=== PATIENT | female | born 1995 | race American Indian/Alaskan Native ===

== ENCOUNTER 2016-11-03 18:54 | Emergency (ER) | payer SELFPAY ==
[2016-11-03 20:04] LABS: Basophils % (Auto) 0.6 % (0.0-1.8); Eosinophils % (Auto) 5.3 % (0.0-4.3); Hematocrit 40.5 % (30.3-42.9); Hemoglobin 12.5 gm/dl (10.1-14.3); Mean Corpuscular HGB Conc 31 % (30-34); Mean Corpuscular Volume 72 fl (79-97); Platelet Count 334 K/mm3 (140-440); Red Blood Count 5.61 M/mm3 (3.65-5.03); Red Cell Distribution Width 14.1 % (13.2-15.2)
[2016-11-03 20:08] LABS: Mean Corpuscular Hemoglobin 22 pg (28-32)
[2016-11-03 20:21] LABS: Anion Gap 15 mmol/L; Blood Urea Nitrogen 9 mg/dL (7-17); Calcium 9.6 mg/dL (8.4-10.2); Carbon Dioxide 29 mmol/L (22-30); Chloride 103.6 mmol/L (98-107); Glucose 76 mg/dL (65-100); Potassium 3.9 mmol/L (3.6-5.0); Sodium 144 mmol/L (137-145)
[2016-11-03 20:38] LABS: Bacteria,Urine 1+ /HPF (Negative); Bilirubin,Urine NEG (Negative); Blood,Urine NEG (Negative); Ketones,Urine NEG (Negative); Leukocyte Esterase,Urine SM (Negative); Mucus,Urine 3+ /HPF; Nitrite,Urine NEG (Negative); Protein,Urine <15 mg/dL mg/dL (Negative)
--- NOTE | 2016-11-03 21:06 | Emergency Department Report ---
HPI - General Chief Complaint: Dyspnea/Respdistress Time Seen by Provider: 11/03/16 20:56 - HPI HPI: Chief complaint: I have chest pain. This is 21-year-old -[place] female who presents to the ED with right- sided chest pain that started yesterday. She stated her pain is 9 out of 10, sharp and radiates into her right upper back. And also complaining palpitation , and shortness of breath. She denies any fever or chills, sore throat or cough. Patient states that her LMP was August 03 and that she has been spotting ever since. She denies any alleviating factors. Strenuous activity however makes the pain worse. She does not smoke, ED Past Medical Hx - Past Medical History Previous Medical History?: No - Surgical History Past Surgical History?: No - Family History Family history: hypertension - Social History Smoking Status: Never Smoker Substance Use Type: None - Medications Home Medications: Home Medications Medication Instructions Recorded Confirmed Last Taken Type methOCARBAMOL [Robaxin TAB] 500 mg PO Q6H PRN #20 tablet 11/04/16 Unknown Rx ED Review of Systems ROS: Stated complaint: BODY PAIN Other details as noted in HPI Comment: All other systems reviewed and negative Respiratory: shortness of breath Cardiovascular: chest pain Physical Exam - Physical Exam Vital Signs: Vital Signs 11/03/16 11/03/16 19:28 20:57 Temperature 98.5 F Pulse Rate 59 L 57 L Respiratory 20 16 Rate Blood Pressure 112/74 Blood Pressure 111/66 [Left] O2 Sat by Pulse 100 99 Oximetry Physical Exam: Gen. alert and oriented 3 in no distress Head atraumatic normocephalic Eyes PERR LA EOMI Chest regular rate and rhythm normal S1-S2 lungs clear bilaterally Abdomen soft nondistended Back no point tenderness paravertebral tenderness Neuro no focal deficit. Psych normal mood. ED Course Vital Signs 11/03/16 11/03/16 19:28 20:57 Temperature 98.5 F Pulse Rate 59 L 57 L Respiratory 20 16 Rate Blood Pressure 112/74 Blood Pressure 111/66 [Left] O2 Sat by Pulse 100 99 Oximetry ED Medical Decision Making - Lab Data Result diagrams: 11/03/16 19:49 11/03/16 19:49 Critical care attestation.: If time is entered above; I have spent that time in minutes in the direct care of this critically ill patient, excluding procedure time. ED Disposition Clinical Impression: Atypical chest pain Disposition: DC-01 TO HOME OR SELFCARE Is pt being admited?: No Does the pt Need Aspirin: No Condition: Stable Instructions: Chest Pain (ED) Prescriptions: methOCARBAMOL [Robaxin TAB] 500 mg PO Q6H PRN #20 tablet PRN Reason: Pain
--- NOTE | 2016-11-03 21:28 | XRay Report ---
FINAL REPORT PROCEDURE: XR CHEST ROUTINE 2V TECHNIQUE: PA and lateral chest radiographs were obtained. CPT 50125 HISTORY: Shortness of breath COMPARISON: No prior studies are available for comparison. FINDINGS: Heart: Normal. Mediastinum/Vessels: Normal. Lungs/Pleural space: Normal. Bony thorax: No acute osseous abnormality. Other: IMPRESSION: Normal examination.
[2016-11-03 23:45] VITALS: BP 105/64
[2016-11-03] MEDS ORDERED: TORADOL IM ONE (23:45)
== END 2016-11-04 00:27 | disposition home or self-care (01) ==
LOC: ED 18:54
DX: R07.89 Other chest pain (principal)
CPT/HCPCS: 36415; 71020; 80048; 81001; 84484; 84703; 85025; 85379; 93005; 93010; 96372; 99284; J1885

== ENCOUNTER 2017-03-25 14:42 | Emergency (ER) | payer SELFPAY ==
--- NOTE | 2017-03-25 14:56 | Emergency Department Report ---
Chief Complaint: Urogenital-Female Stated Complaint: ABDOMINAL PAIN - HPI History of Present Illness: 21-year-old female past medical history gonorrhea presents with 1 day of white vaginal discharge and some suprapubic discomfort. Denies fevers chills nausea or vomiting. Patient is currently sexually active. - ROS Review of Systems: 1 day of whitish vaginal discharge - Exam Vital Signs: Vital Signs 03/25/17 14:45 Temperature 98.5 F Pulse Rate 74 Respiratory 18 Rate Blood Pressure 111/73 O2 Sat by Pulse 98 Oximetry Physical Exam: Positive suprapubic discomfort MSE screening note: Focused history and physical exam performed. Due to findings the following was ordered: Screening Assessment/Plan/Differential Dx: Possible cervicitis, vaginal discharge 1- This initial assessment/diagnostic orders/clinical plan/ treatment(s) is/are subject to change based on pt's health status, clinical progression and re- assessment by fellow clinical providers in the ED. Further treatment and workup at subsequent clinical provers discretion. Patient/guardians urged not to elope from ED as their condition may be serious if not clinically assessed and managed. 2-patient will need pelvic exam 3-urinalysis, urine culture, urine ED Disposition for MSE Condition: Stable
[2017-03-25 16:06] LABS: Basophils % (Auto) 0.6 % (0.0-1.8); Mean Corpuscular HGB Conc 31 % (30-34); Mean Corpuscular Volume 72 fl (79-97); Platelet Count 296 K/mm3 (140-440); Red Blood Count 5.81 M/mm3 (3.65-5.03); Red Cell Distribution Width 14.8 % (13.2-15.2); White Blood Count 3.4 K/mm3 (4.5-11.0)
[2017-03-25 16:11] LABS: Hemoglobin 12.9 gm/dl (10.1-14.3)
[2017-03-25 16:12] LABS: Hematocrit 41.9 % (30.3-42.9); Mean Corpuscular Hemoglobin 22 pg (28-32)
[2017-03-25 16:18] LABS: Bilirubin,Urine NEG (Negative); Blood,Urine NEG (Negative); Ketones,Urine NEG (Negative); Leukocyte Esterase,Urine NEG (Negative); Mucus,Urine 3+ /HPF; Nitrite,Urine NEG (Negative); Protein,Urine <15 mg/dL mg/dL (Negative)
[2017-03-25 16:18] LABS: Anion Gap 17 mmol/L; BUN/Creatinine Ratio 15; Blood Urea Nitrogen 12 mg/dL (7-17); Calcium 9.7 mg/dL (8.4-10.2); Carbon Dioxide 28 mmol/L (22-30); Chloride 102.4 mmol/L (98-107); Glucose 95 mg/dL (65-100); Potassium 4.5 mmol/L (3.6-5.0); Sodium 143 mmol/L (137-145)
--- NOTE | 2017-03-25 18:26 | Emergency Department Report ---
ED Female HPI - General Chief complaint: Urogenital-Female Stated complaint: ABDOMINAL PAIN Time Seen by Provider: 03/25/17 15:22 Source: patient Mode of arrival: Ambulatory Limitations: No Limitations - History of Present Illness Initial comments: Patient here for lower abdominal pain started yesterday that it's cramp. On-and -off at 2 out of 10. She says she has whitish, creamy vaginal discharge with no odor. Last menstrual period was 03/12/2017. Denies any urinary burning, frequency or urgency. Denies any nausea or vomiting. She says she is concerned for STD and would like to be treated. No [id number] medication taken. She is not aware of her partner have similar symptoms. Patient denies any medical problems. MD Complaint: vaginal discharge, pelvic pain, possible STD Onset/Timin -: days(s) Location: other (pelvic area) Radiation: non-radiating Severity: mild Severity scale (0 -10): 2 Quality: cramping Consistency: intermittent Worsens with: none Are you Now?: No Last Menstrual Period: 08/03/16 EDC: 05/10/17 Associated Symptoms: vaginal discharge. denies: vaginal bleeding, abdominal pain, nausea/vomiting, fever/chills, headaches, loss of appetite, dysuria, hematuria, rash, seizure, shortness of breath, syncope, weakness - Related Data Sexually active: Yes Previous Rx's Medication Instructions Recorded Last Taken Type methOCARBAMOL [Robaxin TAB] 500 mg PO Q6H PRN #20 tablet 11/04/16 Unknown Rx Promethazine [Phenergan TAB] 25 mg PO Q12HR PRN 7 Days #14 tab 03/25/17 Unknown Rx metroNIDAZOLE [Flagyl] 500 mg PO Q12HR 7 Days #14 tab 03/25/17 Unknown Rx Allergies Allergy/AdvReac Type Severity Reaction Status Date / Time No Known Allergies Allergy Verified 03/25/17 14:45 ED Review of Systems ROS: Stated complaint: ABDOMINAL PAIN Other details as noted in HPI Comment: All other systems reviewed and negative Constitutional: no symptoms reported ENT: denies: throat pain Respiratory: no symptoms reported Cardiovascular: denies: chest pain, palpitations, dyspnea on exertion, orthopnea , edema, syncope, paroxysmal nocturnal dyspnea Gastrointestinal: abdominal pain. denies: nausea, vomiting, diarrhea, constipation Genitourinary: discharge, abnormal menses. denies: urgency, dysuria, frequency , hematuria, dyspareunia Musculoskeletal: denies: back pain, joint swelling, arthralgia, myalgia Skin: denies: rash Neurological: denies: headache, weakness, numbness, paresthesias, confusion, abnormal gait, vertigo ED Past Medical Hx - Past Medical History Previous Medical History?: No - Surgical History Past Surgical History?: No - Family History Family history: no significant - Social History Smoking Status: Never Smoker Substance Use Type: None - Medications Home Medications: Home Medications Medication Instructions Recorded Confirmed Last Taken Type methOCARBAMOL [Robaxin TAB] 500 mg PO Q6H PRN #20 tablet 11/04/16 Unknown Rx Promethazine [Phenergan TAB] 25 mg PO Q12HR PRN 7 Days #14 tab 03/25/17 Unknown Rx metroNIDAZOLE [Flagyl] 500 mg PO Q12HR 7 Days #14 tab 03/25/17 Unknown Rx ED Physical Exam - General Limitations: No Limitations General appearance: alert, in no apparent distress - Head Head exam: Present: atraumatic, normocephalic, normal inspection - Eye Eye exam: Present: normal appearance, PERRL, EOMI Pupils: Present: normal accommodation - ENT ENT exam: Present: normal exam, normal orophraynx, mucous membranes moist - Neck Neck exam: Present: normal inspection, full ROM. Absent: tenderness, lymphadenopathy - Respiratory Respiratory exam: Present: normal lung sounds bilaterally. Absent: respiratory distress, chest wall tenderness, accessory muscle use - Cardiovascular Cardiovascular Exam: Present: regular rate, normal rhythm, normal heart sounds. Absent: systolic murmur, diastolic murmur - GI/Abdominal GI/Abdominal exam: Present: soft, normal bowel sounds. Absent: distended, tenderness, guarding, rebound, rigid, organomegaly, mass, bruit, pulsatile mass , hernia - Extremities Exam Extremities exam: Present: normal inspection, full ROM, normal capillary refill , other (no clubbing, cyanosis or edema. +2 pulses to all extremities). Absent : tenderness, pedal edema, joint swelling, calf tenderness - Back Exam Back exam: Present: normal inspection, full ROM. Absent: tenderness, CVA tenderness (R), CVA tenderness (L), muscle spasm, paraspinal tenderness, vertebral tenderness, rash noted - Neurological Exam Neurological exam: Present: alert, oriented X3, normal gait. Absent: reflexes normal - Psychiatric Psychiatric exam: Present: normal affect, normal mood - Skin Skin exam: Present: warm, dry, intact, normal color. Absent: rash ED Course Vital Signs 03/25/17 14:45 Temperature 98.5 F Pulse Rate 74 Respiratory 18 Rate Blood Pressure 111/73 O2 Sat by Pulse 98 Oximetry - Reevaluation(s) Reevaluation #1: 03/25/17 19:00 Patient is stable and no change in abdominal exam. awaiting Wet prep culture. Reevaluation #2: 03/25/17 20:29 Patient chose to be treated empirically for STD and was given Rocephin 250 mg IM and azithromycin 1 g by mouth in the emergency room. Wet prep with positive BV, negative Trichomonas and negative yeast. Patient is not and she does not have a urinary tract infection ED Medical Decision Making - Lab Data Result diagrams: 03/25/17 15:50 03/25/17 15:50 Lab Results 03/25/17 03/25/17 03/25/17 Range/Units 15:50 15:50 16:02 WBC 3.4 L (4.5-11.0) K/mm3 RBC 5.81 H (3.65-5.03) M/mm3 Hgb 12.9 (10.1-14.3) gm/dl Hct 41.9 (30.3-42.9) % MCV 72 L (79-97) fl MCH 22 L (28-32) pg MCHC 31 (30-34) % RDW 14.8 (13.2-15.2) % Plt Count 296 (140-440) K/mm3 Lymph % (Auto) 33.6 (13.4-35.0) % Greene % (Auto) 6.3 (0.0-7.3) % Eos % (Auto) 4.0 (0.0-4.3) % Baso % (Auto) 0.6 (0.0-1.8) % Lymph # 1.1 L (1.2-5.4) K/mm3 Greene # 0.2 (0.0-0.8) K/mm3 Eos # 0.1 (0.0-0.4) K/mm3 Baso # 0.0 (0.0-0.1) K/mm3 Seg Neutrophils % 55.5 (40.0-70.0) % Seg Neutrophils # 1.9 (1.8-7.7) K/mm3 Sodium 143 (137-145) mmol/L Potassium 4.5 (3.6-5.0) mmol/L Chloride 102.4 (98-107) mmol/L Carbon Dioxide 28 (22-30) mmol/L Anion Gap 17 mmol/L BUN 12 (7-17) mg/dL Creatinine 0.8 (0.7-1.2) mg/dL Estimated GFR > 60 ml/min BUN/Creatinine Ratio 15 % Glucose 95 (65-100) mg/dL Calcium 9.7 (8.4-10.2) mg/dL Urine Color Yellow (Yellow) Urine Turbidity Clear (Clear) Urine pH 5.0 (5.0-7.0) Ur Specific [place] 1.030 (1.003-1.030) Urine Protein <15 mg/dl (Negative) mg/dL Urine Glucose (UA) Neg (Negative) mg/dL Urine Ketones Neg (Negative) mg/dL Urine Blood Neg (Negative) Urine Nitrite Neg (Negative) Ur Reducing Substances Not Reportable Urine Bilirubin Neg (Negative) Urine Ictotest Not Reportable Urine Urobilinogen 2.0 (<2.0) mg/dL Ur Leukocyte Esterase Neg (Negative) Urine WBC (Auto) 1.0 (0.0-6.0) /HPF Urine RBC (Auto) 2.0 (0.0-6.0) /HPF U Epithel Cells (Auto) 9.0 (0-13.0) /HPF Urine Mucus 3+ /HPF Urine HCG, Qual Negative (Negative) Wet prep positive clue cells, negative Trichomonas and negative yeast Gonorrhea and chlamydia tests are pending - Medical Decision Making ED course: Pt here requesting to be tested for STD and requesting treatment. She says she is having vaginal discharge and think that she has been exposed to STD. Patient also report that she has not had her period since 08/03 2016. She reports that she is having some abdominal cramping on and off. She does not have a primary care physician. She said that she was diagnosed with bacterial vaginosis and was prescribed pills but she could not take it because it made her nauseous. Wet prep with positive bacterial vaginosis, patient white cells mildly decreased at 3.1 otherwise CBC is stable please refer to laboratory section for complete results. I discussed patient her lab results and I told her that she needs to follow up with [facility] [employer] [facility] [facility] for abnormal menses. Patient pelvic exam normal except she had Cervix and vaginal discharge with mild odor. Patient was given Rocephin 50 mg IM to treat gonorrhea and azithromycin 1 g by mouth for chlamydia. She was also told that she has bacterial vaginosis and she will need to take Flagyl because the alternative is vaginal suppository which is very expensive and she does not have any sheet insurance and so she would not be up forward vaginal suppository. I discussed treatment plan and told her I will put her on Phenergan for nausea to take Phenergan 30 minutes prior to taking her Flagyl. She voiced understanding and I referred her to stay outside [facility] also to follow up at health department. Critical care attestation.: If time is entered above; I have spent that time in minutes in the direct care of this critically ill patient, excluding procedure time. ED Disposition Clinical Impression: Concern about STD in female without diagnosis, Vaginal discharge, Pelvic cramping, Bacterial vaginosis, Abnormal menstrual cycle Disposition: TO HOME OR SELFCARE Is pt being admited?: No Does the pt Need Aspirin: No Condition: Stable Instructions: Bacterial Vaginosis (ED), Abdominal Pain (ED), Safe Sex (ED), Sexually Transmitted Diseases (ED) Additional Instructions: Please refrain from having sexual activity for the next 2 weeks. Follow-up with your primary care physician in 2 days and if he do not have a primary care physician follow-up at outside [facility] Follow up with [facility] in 7-10 days for repeat STD check You were treated today gonorrhea and chlamydia tests will be back in 5-7 days. Practice safe sex Please follow up with [facility] or your [facility] [facility] office for normal menstrual cycle These do not drink alcohol while taking medication for bacterial vaginosis for the next 7 days as this will interact negatively with alcohol. Tell partner know that you're treated for STD in hospital today. increase her fluid intake Prescriptions: metroNIDAZOLE [Flagyl] 500 mg PO Q12HR 7 Days #14 tab Promethazine [Phenergan TAB] 25 mg PO Q12HR PRN 7 Days #14 tab PRN Reason: Nausea Referrals: [facility] [Outside] - 2-3 Days [facility] [Outside] - 7-10 days Forms: STI Treatment and Prevention, Work/School Release Form(ED)
[2017-03-25] MEDS ORDERED: XYLOCAINE 1% MPF 5 mL INFILTRATI ONE (20:19)
[2017-03-25] MEDS ORDERED: ZITHROMAX PO ONE (20:19)
[2017-03-25] MEDS ORDERED: ROCEPHIN IM ONE (20:19)
[2017-03-25 21:09] VITALS: BP 109/72
== END 2017-03-25 21:09 | disposition home or self-care (01) ==
LOC: ED 14:42
DX: N76.0 Acute vaginitis (principal); B96.89 Other specified bacterial agents as the cause of diseases classified elsewhere; R10.2 Pelvic and perineal pain; N89.8 Other specified noninflammatory disorders of vagina; N92.6 Irregular menstruation, unspecified
CPT/HCPCS: 36415; 80048; 81001; 81025; 85025; 87086; 87210; 87591; 96372; 99283; J0696

== ENCOUNTER 2017-12-10 19:36 | Emergency (ER) | payer SELFPAY ==
[2017-12-10 20:00] VITALS: BP 111/72
--- NOTE | 2017-12-10 23:16 | Emergency Department Report ---
Upper Respiratory HPI - HPI Chief Complaint: Upper Respiratory Infection Stated Complaint: CHEST PAIN/HEAD Time Seen by Provider: 12/10/17 23:01 Duration: 2 Days URI Symptoms: Rhinorrhea: Yes, Sore Throat: Yes, Ear Pain: No, Cough: Yes, Shortness of Breath: No, Sick Contacts: Yes, Unable to Take Fluids: No, Urine Output Abnormal: No, Listless Behavior: No - Home Meds and Allergies Home Medications: Previous Rx's Medication Instructions Recorded Last Taken Type methOCARBAMOL [Robaxin TAB] 500 mg PO Q6H PRN #20 tablet 11/04/16 Unknown Rx Promethazine [Phenergan TAB] 25 mg PO Q12HR PRN 7 Days #14 tab 03/25/17 Unknown Rx metroNIDAZOLE [Flagyl] 500 mg PO Q12HR 7 Days #14 tab 03/25/17 Unknown Rx ALBUTEROL Inhaler(NF) [VENTOLIN 1 puff IH QID PRN #1 inha 12/10/17 Unknown Rx Inhaler(NF)] Benzonatate [Tessalon Perles] 100 mg PO Q8HR PRN #30 capsule 12/10/17 Unknown Rx Ibuprofen 800 mg PO TID PRN #30 tablet 12/10/17 Unknown Rx predniSONE [Deltasone] 40 mg PO QDAY #10 tab 12/10/17 Unknown Rx Allergies/Adverse Reactions: Allergies Allergy/AdvReac Type Severity Reaction Status Date / Time No Known Allergies Allergy Verified 03/25/17 14:45 ED Review of Systems ROS: Stated complaint: CHEST PAIN/HEAD Other details as noted in HPI Constitutional: denies: chills, fever Eyes: denies: eye pain, eye discharge, vision change ENT: throat pain, congestion Respiratory: cough, shortness of breath. denies: wheezing Cardiovascular: as per HPI Endocrine: no symptoms reported Gastrointestinal: denies: abdominal pain, nausea, diarrhea Genitourinary: as per HPI Musculoskeletal: denies: back pain, joint swelling, arthralgia Skin: denies: rash, lesions Neurological: denies: headache, weakness, paresthesias Psychiatric: denies: anxiety, depression Hematological/Lymphatic: denies: easy bleeding, easy bruising ED Past Medical Hx - Past Medical History Previous Medical History?: No - Surgical History Past Surgical History?: No - Social History Smoking Status: Never Smoker Substance Use Type: None - Medications Home Medications: Home Medications Medication Instructions Recorded Confirmed Last Taken Type methOCARBAMOL [Robaxin TAB] 500 mg PO Q6H PRN #20 tablet 11/04/16 Unknown Rx Promethazine [Phenergan TAB] 25 mg PO Q12HR PRN 7 Days #14 tab 03/25/17 Unknown Rx metroNIDAZOLE [Flagyl] 500 mg PO Q12HR 7 Days #14 tab 03/25/17 Unknown Rx ALBUTEROL Inhaler(NF) [VENTOLIN 1 puff IH QID PRN #1 inha 12/10/17 Unknown Rx Inhaler(NF)] Benzonatate [Tessalon Perles] 100 mg PO Q8HR PRN #30 capsule 12/10/17 Unknown Rx Ibuprofen 800 mg PO TID PRN #30 tablet 12/10/17 Unknown Rx predniSONE [Deltasone] 40 mg PO QDAY #10 tab 12/10/17 Unknown Rx ED Bronchiolitis Physical Exam - Exam General: Vital signs noted. No distress. Alert and acting appropriately. HEENT: Yes Pharyngeal Erythema, Yes Rhinorrhea, No Conjuctival Injection, No Dry Mucous Membranes Ear: Neither TM Bulge, Neither TM Erythema, Neither EAC Discharge Neck: No Adenopathy, No Rigidity Lungs: Yes Clear Lung Sounds, Yes Good Air Exchange, Yes Cough, No Wheezes, No Stridor, No Nasal Flaring, No Retractions Heart: Yes Regular, No Murmur Abdomen: Yes Normal Bowel Sounds, No Tenderness, No Peritoneal Signs Skin: No Rash, No Eczema Neurologic: Alert and oriented, no deficits. Musculoskeletal: Unremarkable. ED Physical Exam - General Limitations: No Limitations General appearance: alert, in no apparent distress - Head Head exam: Present: atraumatic, normocephalic - Eye Eye exam: Present: normal appearance - ENT ENT exam: Present: normal orophraynx, mucous membranes moist, TM's normal bilaterally - Expanded ENT Exam Expanded Ear exam: Present: normal external inspection Mouth exam: Present: muffled voice. Absent: trismus Throat exam: Positive: tonsillar erythema. Negative: tonsillomegaly, tonsillar exudate, R peritonsillar mass, L peritonsillar mass - Neck Neck exam: Present: normal inspection, full ROM. Absent: lymphadenopathy, thyromegaly - Respiratory Respiratory exam: Present: normal lung sounds bilaterally. Absent: respiratory distress, wheezes, stridor, chest wall tenderness - Cardiovascular Cardiovascular Exam: Present: regular rate, normal rhythm. Absent: systolic murmur, diastolic murmur, rubs, gallop - GI/Abdominal GI/Abdominal exam: Present: soft, normal bowel sounds. Absent: distended, bruit , hernia - Rectal Rectal exam: Present: deferred - Extremities Exam Extremities exam: Present: normal inspection - Back Exam Back exam: Present: normal inspection, full ROM - Neurological Exam Neurological exam: Present: alert, oriented X3, CN II-XII intact, normal gait, reflexes normal - Psychiatric Psychiatric exam: Present: normal affect, normal mood - Skin Skin exam: Present: warm, dry, intact, normal color. Absent: rash ED Course Vital Signs 12/10/17 19:56 Temperature 99.5 F Pulse Rate 86 Respiratory 16 Rate Blood Pressure 111/72 O2 Sat by Pulse 100 Oximetry ED Medical Decision Making - Medical Decision Making this is a URI versus bronchitis flare patient is not wheezing and fever no fever and no wheezing at this time noted mild pharynx erythema and no lesions no exudate bilateral turbinate erythema and clear postnasal drip airway is patent TMs clear bilaterally patient is ambulatory in ED without increased shortness of breath patient refuses x-ray question medication refill will refill her albuterol inhaler and Tessalon Perles ibuprofen when necessary pain fever prednisone burst. Verbalize understanding and agreement was signed will be DC'd to home in stable condition at this time Critical care attestation.: If time is entered above; I have spent that time in minutes in the direct care of this critically ill patient, excluding procedure time. ED Disposition Clinical Impression: Bronchitis Disposition: DC-01 TO HOME OR SELFCARE Is pt being admited?: No Does the pt Need Aspirin: No Condition: Good Instructions: Acute Bronchitis (ED) Prescriptions: ALBUTEROL Inhaler(NF) [VENTOLIN Inhaler(NF)] 1 puff IH QID PRN #1 inha PRN Reason: wheezing sob Benzonatate [Tessalon Perles] 100 mg PO Q8HR PRN #30 capsule PRN Reason: Cough Ibuprofen 800 mg PO TID PRN #30 tablet PRN Reason: pain/fever predniSONE [Deltasone] 40 mg PO QDAY #10 tab Referrals: [facility] [Outside] - 3-5 Days Forms: Work/School Release Form(ED) Time of Disposition: 23:27
== END 2017-12-10 23:35 | disposition home or self-care (01) ==
LOC: ED 19:36
DX: J40 Bronchitis, not specified as acute or chronic (principal)
CPT/HCPCS: 93005; 93010; 99282